=== PATIENT | female | born 1945 | race Caucasian/White ===

== ENCOUNTER → 2017-03-03 | Outpatient (CLI) | payer OTHER | LOC: FIMAGING 16:16 | PROVIDERS: ATTEND Family Medicine ==

== ENCOUNTER → 2018-01-04 | Outpatient (CLI) | payer OTHER | LOC: BMCIMAGING 08:42 | PROVIDERS: ATTEND Family Medicine | DX: I71.4 Abdominal aortic aneurysm, without rupture (principal); I51.3 Intracardiac thrombosis, not elsewhere classified ==

== ENCOUNTER 2018-01-19 15:51 | Observation (INO) | payer OTHER ==
--- NOTE | 2018-01-19 16:12 | CPEKG ---
Heart Rate: 76 RR Interval: 789 P-R Interval: 168 QRSD Interval: 80 QT Interval: 388 QTC Interval: 437 P Ovett: 46 QRS Ovett: -5 T Wave Ovett: 41 EKG Severity - ABNORMAL ECG - EKG Impression: SINUS RHYTHM EKG Impression: MULTIPLE VENTRICULAR PREMATURE COMPLEXES EKG Impression: PROBABLE LEFT ATRIAL ABNORMALITY Electronically Signed By: Yaw Marie 19-Jan-2018 22:16:43
--- NOTE | 2018-01-19 16:29 | EDPHY ---
H & P Time Seen by Provider: 01/19/18 16:00 HPI/ROS: Chief complaint. Low oxygen level HPI. Patient is a 72-year-old female who had an open aortic aneurysm repair at [facility] on January 08. She has been on 24/7 oxygen at 2 L since her discharge. She has been having nasal congestion for 3 days especially at night. She quit taking Flonase 3 days ago. She has no sense of shortness of breath. At her 's insistence for the nasal congestion she went to urgent care where they found her to have an O2 saturation of 80/7% while she was on her oxygen. Again she had no sense of shortness of breath. She has no chest pain or fever. No cough. She does feel like she has some congestion in her lungs and clears her throat or cough sit up and then seems to be fine. She has swelling in both legs since her surgery but no leg pain. Leg swelling goes down over night and then is worse again toward the end of the day. Decreasing abdominal pain since her surgery and no increase or change in symptoms of her abdomen. [place] [address] Patient's only complaint is nasal congestion ROS Constitutional. no fever/chills, no weakness Eyes. no problems with vision ENT. Nasal congestion Cardiovascular. no chest pain Respiratory. no shortness of breath, no cough Abdominal. Decreasing abdominal pain after surgery . no problems urinating MS. no calf pain/swelling, no neck/back pain, no joint pain Skin. no rash Lymph. no swollen glands; bilateral leg swelling Neuro. no headache, no dizziness, no difficulty walking or with speech Past Medical/Surgical History: Past medical history hypertension, dyslipidemia, aortic aneurysm repair Social History: , nonsmoker, no alcohol Smoking Status: Former smoker Physical Exam: General Appearance: Alert pleasant well-developed female no distress vital signs are stable O2 saturation 98% on 2 L of oxygen Eyes: Pupils equal and round no pallor or injection. ENT, Mouth: Mucous membranes are moist. Respiratory: Mild inspiratory expiratory rhonchi Cardiovascular: Regular rate and rhythm. Gastrointestinal: Abdomen is soft and nontender, no masses, bowel sounds normal. Abdominal incision is healing and without evidence of infection or dehiscence Neurological: Awake and alert, sensory and motor exams grossly normal. Skin: Warm and dry, no rashes. Musculoskeletal: Neck is supple nontender. Extremities 2+ pedal edema bilaterally Psychiatric: Patient is oriented X 3, there is no agitation. Constitutional: Initial Vital Signs Temperature (C) 36.7 C 01/19/18 15:53 Heart Rate 71 01/19/18 15:53 Respiratory Rate 16 01/19/18 15:53 O2 Sat (%) 98 01/19/18 15:53 O2 Delivery Mode Nasal Cannula O2 (L/minute) 2 Allergies/Adverse Reactions: Penicillins Allergy (Severe, Verified 01/19/18 20:00) hives, facial swelling latex Allergy (Verified 01/19/18 16:00) Home Medications: Medication Instructions Recorded Atorvastatin Calcium 80 mg PO HS 01/19/18 Hydrocodone/Acetaminophen [[place] 1 tab PO Q6HRS PRN 01/19/18 5/325 (*)] Losartan Potassium 100 mg PO DAILY 01/19/18 Magnesium Oxide [Magnesium Oxide 400 mg PO DAILY 01/19/18 400 mg (*)] Niacin ER [Niaspan 500 mg (*)] 500 mg PO HS@2130 01/19/18 traMADol [Ultram 50 mg (*)] 50 mg PO Q6HRS PRN 01/19/18 Medical Decision Making - Diagnostics EKG Interpretation: EKG interpreted by me shows normal sinus rhythm normal interval. There is left axis deviation. QRS is normal. There is no significant ST elevation or depression. There is frequent PVCs. rate is 76 Imaging Results: Imaging Impressions Chest X-Ray 01/19/18 16:34 Impression: 1. Lingula pneumonia. 2. Atherosclerotic tortuous aorta. 3. Recommend follow up until clear. Chest/Thorax CTA 01/19/18 17:08 Impression: 1. No evidence of pulmonary embolus using CT protocol. 2. Moderate to marked calcified as well as noncalcified plaques associated with the thoracic aorta and possible ulcerations involving the proximal descending thoracic aorta. 3. 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 4. Findings suspicious for subtotal infarction of the visualized left kidney with soft tissue thickening in the periaortic region in the upper abdomen presumably from recent abdominal aortic aneurysm repair. 5. Emphysematous changes and scattered blebs within the lungs. Findings discussed with Yaw Marie M.D. at 18:49 hour, 01/19/2018. Chest x-ray interpreted by me as possible left lower lobe infiltrate Chest CT shows no PE. However the patient has calcified as well as noncalcified plaques in the 3rd AA or thoracic aorta with possible ulcerations. 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 Patient and I discussed imaging and lab results. We discussed recommendation for CT chest for pulmonary embolus and pneumonia. She expresses understanding and agreement Re-evaluation at 7:10 p.m.. Patient, her , and I discussed imaging and lab results. We discussed treatment plan including recommendation for hospitalization. They expressed understanding and agreement I have consulted and discussed the case with Dr. Moore, hospitalist, who agrees to the admission I consulted discussed case with Dr. Boston for cardiac surgery who reviews the CT and will follow this patient Patient's care at [facility] is reviewed by me on corhio Differential Diagnosis: I am concerned about pulmonary embolus, pneumonia. The patient has ulcerations in the thoracic aorta. I am concerned about dissection. - Data Points Laboratory Results: Laboratory Results 01/19/18 16:30 01/19/18 16:30 01/19/18 01/19/18 01/19/18 17:15 16:40 16:30 WBC RBC Hgb Hct MCV MCH MCHC RDW Plt Count MPV Neut % (Auto) Lymph % (Auto) [place] % (Auto) Eos % (Auto) Baso % (Auto) Nucleat RBC Rel Count Absolute Neuts (auto) Absolute Lymphs (auto) Absolute Monos (auto) Absolute Eos (auto) Absolute Basos (auto) Absolute Nucleated RBC Immature Gran % Immature Gran # PT Cancelled INR Cancelled APTT Cancelled D-Dimer Sodium Potassium Chloride Carbon Dioxide Anion Gap BUN Creatinine Estimated GFR Glucose Calcium POC Troponin I 0.00 ng/mL ng/mL (0.00-0.08) NT-Pro-B Natriuret Pep Urine Color YELLOW Urine Appearance CLEAR Urine pH 7.0 (5.0-7.5) Ur Specific [place] 1.006 (1.002-1.030) Urine Protein NEGATIVE (NEGATIVE) Urine Ketones NEGATIVE (NEGATIVE) Urine Blood 2+ H (NEGATIVE) Urine Nitrate NEGATIVE (NEGATIVE) Urine Bilirubin NEGATIVE (NEGATIVE) Urine Urobilinogen NEGATIVE EU EU (0.2-1.0) Ur Leukocyte Esterase TRACE H (NEGATIVE) Urine RBC 5-10 /hpf H /hpf (0-3) Urine WBC 5-10 /hpf H /hpf (0-3) Ur Epithelial Cells TRACE /lpf /lpf (NONE-1+) Urine Glucose NEGATIVE (NEGATIVE) 01/19/18 01/19/18 01/19/18 16:30 16:30 16:30 WBC 9.67 10^3/uL H 10^3/uL (3.80-9.50) RBC 3.41 10^6/uL L 10^6/uL (4.18-5.33) Hgb 10.6 g/dL L g/dL (12.6-16.3) Hct 32.0 % L % (38.0-47.0) MCV 93.8 fL fL (81.5-99.8) MCH 31.1 pg pg (27.9-34.1) MCHC 33.1 g/dL g/dL (32.4-36.7) RDW 14.8 % % (11.5-15.2) Plt Count 359 10^3/uL 10^3/uL (150-400) MPV 9.3 fL fL (8.7-11.7) Neut % (Auto) 78.5 % H % (39.3-74.2) Lymph % (Auto) 12.4 % L % (15.0-45.0) [place] % (Auto) 6.7 % % (4.5-13.0) Eos % (Auto) 1.3 % % (0.6-7.6) Baso % (Auto) 0.3 % % (0.3-1.7) Nucleat RBC Rel Count 0.0 % % (0.0-0.2) Absolute Neuts (auto) 7.58 10^3/uL H 10^3/uL (1.70-6.50) Absolute Lymphs (auto) 1.20 10^3/uL 10^3/uL (1.00-3.00) Absolute Monos (auto) 0.65 10^3/uL 10^3/uL (0.30-0.80) Absolute Eos (auto) 0.13 10^3/uL 10^3/uL (0.03-0.40) Absolute Basos (auto) 0.03 10^3/uL 10^3/uL (0.02-0.10) Absolute Nucleated RBC 0.00 10^3/uL 10^3/uL (0-0.01) Immature Gran % 0.8 % % (0.0-1.1) Immature Gran # 0.08 10^3/uL 10^3/uL (0.00-0.10) PT 14.4 SEC SEC (12.0-15.0) INR 1.10 (0.83-1.16) APTT 29.0 SEC SEC (23.0-38.0) D-Dimer 3.90 ug/mLFEU H ug/mLFEU (0.00-0.50) Sodium 134 mEq/L L mEq/L (135-145) Potassium 4.3 mEq/L mEq/L (3.3-5.0) Chloride 101 mEq/L mEq/L (97-110) Carbon Dioxide 26 mEq/l mEq/l (22-31) Anion Gap 7 mEq/L L mEq/L (8-16) BUN 17 mg/dL mg/dL (7-23) Creatinine 1.1 mg/dL H mg/dL (0.6-1.0) Estimated GFR 49 Glucose 110 mg/dL H mg/dL (70-100) Calcium 8.8 mg/dL mg/dL (8.5-10.4) POC Troponin I NT-Pro-B Natriuret Pep 1280 pg/mL H pg/mL (0-125) Urine Color Urine Appearance Urine pH Ur Specific [place] Urine Protein Urine Ketones Urine Blood Urine Nitrate Urine Bilirubin Urine Urobilinogen Ur Leukocyte Esterase Urine RBC Urine WBC Ur Epithelial Cells Urine Glucose Medications Given: Discontinued Medications Sodium Chloride (Ns) 500 mls @ 0 mls/hr IV EDNOW ONE; Wide Open PRN Reason: Protocol Stop: 01/19/18 17:10 Last Admin: 01/19/18 17:21 Dose: 500 mls Levofloxacin/Dextrose (Levaquin 750 Mg (Premix)) 150 mls @ 100 mls/hr IV EDNOW ONE PRN Reason: Protocol Stop: 01/19/18 20:51 Last Admin: 01/19/18 20:03 Dose: 150 mls Point of Care Test Results: Chemistry 01/19/18 16:40 POC Troponin I 0.00 ng/mL ng/mL (0.00-0.08) Departure - Departure Disposition: [facility] Inpatient Acute Clinical Impression: Dyspnea Qualifiers: Dyspnea type: unspecified Qualified Code(s): R06.00 - Dyspnea, unspecified Condition: Fair
[2018-01-19 16:40] LABS: PLATELET COUNT 359 10^3/uL (150-400)
[2018-01-19] MEDS ORDERED: NS 500 ML IV ONE (17:09)
[2018-01-19] MEDS ORDERED: IOPAMIDOL (ISOVUE 370) 100 ML BTL IV ONE (17:15)
[2018-01-19 19:36] LABS: INR 1.1 (0.83-1.16); PROTIME(PATIENT) 14.4 SEC (12.0-15.0)
[2018-01-19] MEDS ORDERED: ONDANSETRON DISINTEGRATING 4 MG TAB PO PRN (20:40)
[2018-01-19] MEDS ORDERED: ONDANSETRON 4 MG/2 ML VIAL IVP PRN (20:40)
[2018-01-19] MEDS ORDERED: ACETAMINOPHEN 325 MG TAB PO PRN (20:40)
[2018-01-19] MEDS ORDERED: traMADol 50 MG TAB PO PRN (21:03)
[2018-01-19] MEDS ORDERED: HYDROCODONE/APAP 5/325 TAB PO PRN (21:03)
[2018-01-19] MEDS ORDERED: NIACIN ER 500 MG TAB.ER PO SCH (21:30)
--- NOTE | 2018-01-19 21:32 | GHP ---
[f rep st] HISTORY AND PHYSICAL DATE OF ADMISSION: 01/19/2018 CHIEF COMPLAINT: Congestion. HISTORY OF PRESENT ILLNESS: This is a 72-year-old female with a recent history of a AAA repair at [facility] who presents with congestion. During my interview, she is somewhat reluctant to give any information, somewhat condescending and seems quite frustrated with being here overall. She came in because she was having some nasal congestion. She felt as though it was running down the back of her throat. She has not had any cough or fevers. She had a recent AAA repair which was found due to abdominal pain. It was 9.3 cm at its largest. This was an aortic bifem graft which was done in an open procedure. She has recovered well until today. In the emergency department a CT scan of her chest for an elevated D-dimer showed significant pathology with her thoracic aorta. It also showed a question of a common carotid artery dissection. Additionally, a renal infarct was noted. She is denying any neurologic symptoms, including difficulty speaking, numbness or weakness. She did not know about these issues. PAST MEDICAL/SURGICAL HISTORY: 1. AAA repair as above. 2. Hyperlipidemia. 3. Hypertension. 4. Orthopedic surgery. 5. Tubal ligation. MEDICATIONS: Please see medication reconciliation. ALLERGIES: Penicillin and latex. SOCIAL HISTORY: She has a 53-year history of smoking. She just recently quit. She drinks 1 Blue Harris a day. FAMILY HISTORY: Notable for heart disease. REVIEW OF SYSTEMS: A 10-point review of systems is conducted and is negative except per HPI. PHYSICAL EXAMINATION: VITAL SIGNS: Blood pressure 171/83, heart rate 70, respiration rate 16, saturating 97% on 2 L, temperature is 36.7. GENERAL: Ms. Ulloa is visibly frustrated being here. She is in no acute distress. HEENT: The HEENT shows her to be normocephalic, atraumatic. CARDIOVASCULAR: A regular rate and rhythm. There are no murmurs, rubs, or gallops. PULMONARY: Lungs clear to auscultation bilaterally. ABDOMEN: A midline surgical incision which is well healing. She is not especially tender to palpation. SKIN: No rash. : No Tim. NEUROLOGIC: The neurologic exam shows her to be alert and oriented x3. She has a nonfocal neurologic exam. PSYCHIATRIC: The psychiatric exam shows her to be somewhat frustrated. LABORATORIES: White count is 9.6, hemoglobin is 10. D-dimer is 3.9. Sodium is 134, creatinine is 1.1. BNP is 1280. Urinalysis shows trace leuk esterase, 5- 10 whites, 2+ blood. DATA: CT angiogram shows thoracic ulcers versus noncalcified plaques, possible focal dissection of the left common carotid artery, likely subtotal infarct of the visualized left kidney. IMPRESSION AND PLAN: 1. Thoracic aorta pathology as well as common carotid artery possible dissection: She did not come in with any of these complaints, these were incidentally found. Dr. Delvalle has been consulted by the emergency department, he will review her CT scan later this evening. Will await his review. She needs better blood pressure control, if she does not come down we will need to increase her antihypertensives. She is on high-dose statin, has stop smoking, would consider an aspirin. 2. Lingular pneumonia seen on chest x-ray: This was not seen on CT scan. She is not coughing. Has not had fevers. I will stop her antibiotics. 3. Renal infarct: This was also incidentally found. 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 Her kidney function is okay at this time. We will recheck it tomorrow. Consider a renal CT angiogram if her creatinine is stable. 4. Difficulty with medical care: She is visibly quite frustrated. She says that she would not want any additional surgeries at this point. This will all need to be taken into account while deciding on the best plan of action for her care. /[id number]/MODL MTDD
--- NOTE | 2018-01-19 21:52 | GCON ---
[f rep st] CONSULTATION Patient is seen at the request of Dr. Marie with the patient's permission. IMPRESSION: Heavily calcified ascending aorta and arch, as well as the origin of the arch vessels wi thout evidence of acute dissection penetrating aortic ulcer or aortic catastrophe. It is difficult t o tell the amount of narrowing of the left common carotid based on this CAT scan. If the patient james s develop symptoms, further interrogation could be pursued. However, at this time, she is entirely a symptomatic from any aortic pathology. CHIEF COMPLAINT: Nasal congestion. HISTORY OF CHIEF COMPLAINT: Patient recently underwent an open abdominal aneurysm[facility]. She has had some nasal congestion and sought care at an outside facility. They noticed her O2 sats were low and referred her to the ER. She underwent diagnostic studies for PE and was noted to have incidental findings of heavy calcification in the arch and the origins of the branch vessels. Surgical consideration was requested. Remainder of history is as per documented in the admitting h istory and physical. At this present time, I would do nothing further unless she developed any sympt oms of cerebral ischemia or embolic phenomena. She has extremely calcified, very poor quality aortic arch and would be fraught with embolic complications for any prophylactic attempt to repair that. /[id number]/MODL
[2018-01-20 03:51] LABS: PLATELET COUNT 336 10^3/uL (150-400)
[2018-01-20] MEDS ORDERED: LOSARTAN POTASSIUM 50 MG TAB PO SCH (09:00)
[2018-01-20] MEDS ORDERED: MAGNESIUM OXIDE 400 MG TAB PO SCH (09:00)
--- NOTE | 2018-01-20 11:30 | ECHO ---
[email or web address] [address] [address] Main: [phone] Fax: Transthoracic Echocardiogram Name: RAVI COLLINS MR#: [id number] Study Date: 01/20/2018 Study Time: 10:42 AM Date of : 1945 Age: 72 year(s) Height: 157.5 cm (62 in.) Weight: 63.05 kg (139 lb.) BSA: 1.64 m2 Gender: Female Examination: Echo Indication: Renal infarct Image Quality: Contrast: Requested by: Jesus Amaya BP: 126 mmHg/80 mmHg Heart Rate: Rhythm: Normal sinus rhythm with ectopy Indication: Renal infarct Procedure Staff Assistant Professor Of German: Hussein Vasquez RDCS Reading Physician: Kun Dunne MD Requesting Provider: Conclusions: Normal global systolic LV function. EF is 74 %. Diastolic dysfunction is present. . Mild mitral valve regurgitation is present. There is mild to moderate ascending aorta calcification.. Based on mild mitral regurgitation, a repeat echo may be considered in 3 years unless there is a change in clinical status. Measurements: Chambers Valvular Assessment AV/MV Valvular Assessment TV/PV Normal Normal Normal Name Value Range Name Value Range Name Value Range Ao Lisa (MM): 2.9 cm (2.2 cm-3.7 AV Vmax: 2.02 m/s (1 m/s-1.7 TR Vmax: 2.63 mm/s ( - ) cm) m/s) TR PGmax: 28 mmHg ( - ) IVSd (2D): 0.8 cm (0.6 cm-1.1 AV maxP mmHg ( - ) syst. PAP: 33 mmHg ( - ) cm) AV meanP mmHg ( - ) PV Vmax: 1.53 m/s (0.6 m/s-0.9 LVDd (2D): 4.8 cm (3.9 cm-5.3 LVOT Vmax: 1.19 m/s (0.7 m/s-1.1 m/s) cm) m/s) PV PGmax: 9 mmHg ( - ) LVDs (2D): 2.8 cm (2.1 cm-4 JENIFFER (Vmax): 1.7 cm2 ( - ) cm) JENIFFER (VTI): 2.0 cm ( - ) LVPWd (2D): 0.9 cm ( - ) MV E Vmax: 0.88 m/s ( - ) LVOTd 1.9 cm 1.9 cm mm MV A Vmax: 1.09 m/s ( - ) LVEF (2D): 74 (>=54 %) MV E/A: 0.81 ( - ) Continued Measurements: Chambers Valvular Assessment AV/MV Valvular Assessment TV/PV Name Value Name Value Name Value LADs Lon.5 cm MV E/E' Septal: 21.60 CVP (est.): 5 mmHg Patient: RAVI COLLINS Study Date: 01/20/2018 Page 1 of 2 10:42 AM LA Area: 16.3 cm2 MV E/E' Lateral: 14.40 LA Volume: 47 ml LA Volume Index: 28.7 ml/m2 Findings: Left Ventricle: Normal size left ventricle. No LV hypertrophy. Normal global systolic LV function. EF is 74 %. No regional wall motion abnormality. Diastolic dysfunction is present. . Right Ventricle: Normal size right ventricle. Left Atrium: The left atrium is normal in size. Right Atrium: The right atrium is normal in size. Mitral Valve: The mitral valve is normal in appearance. Mild mitral valve regurgitation is present. Aortic Valve: Mild aortic cusp calcification is noted. No aortic valve stenosis is present. There is no significant aortic valve regurgitation. Tricuspid Valve: Trivial tricuspid valve regurgitation. The pulmonary artery pressure is normal. Pulmonic Valve: The pulmonic valve is normal in appearance and function. Aorta: There is mild to moderate ascending aorta calcification.. Pericardium: No pericardial effusion. (No Signature Object) Patient: RAVI COLLINS Study Date: 01/20/2018 Page 2 of 2 10:42 AM [id number]
[2018-01-20] MEDS ORDERED: FUROSEMIDE 20 MG TAB PO SCH (12:15)
--- NOTE | 2018-01-20 12:17 | PDDCSUM ---
Discharge Summary Discharge Summary: 72 yo female with hx of recent abd aneurysmectomy presented with nasal congestion. In the ER, w/u include CTA chest which showed possible Ascending aortic aneurysm and she was admitted. She was seen by Dr. Delvalle who does not feel surgical intervention is needed. She is noted to have pedal edema and we have started Lasix 20mg daily. She is also noted to have labile but elevated BP and this should have some improvement with the diuretic. She plans on seeing her surgeon on 01/24 TTE was done which shows an EF of 74%. No other medication changes were made. Her Cr is stable at 1.1 Per her preference, she will f/u with her thoracic surgeon on 01/24. DDX: #Heavy calcified ascending aortic and arch -not symptomatic -cleared for medical mgmt by surgery -f/u with pts surgical team at [facility] #Pedal edema, likely diastolic dysfunction -started Lasix #recent AAA repair #HTN #HLD MEDS: SEE MED REC EXAM: NAD, AAOX3 RRR CTA B S/NT/ND NO LE EDEMA F/U: PER ABOVE TOTAL TIME SPENT ON D/C IS 35 MINS
[2018-01-20 12:28] VITALS: BP 119/73
--- NOTE | 2018-01-20 12:33 | ASMTDCNOTE ---
Case Management Discharge Discharge Order Complete? Answers: Yes Patient to Obtain Answers: via Family Medications Transportation Arranged Answers: Family/Friends Discharge Comments Notes: Pt was admitted with nasal congestion following a AAA repair at [facility] on 01/08. She is discharging home today with no CM needs and will follow up with her surgeon on 01/24. She was here less than 24 hours. Date Signed: 01/20/2018 12:32 PM Electronically Signed By:CARMEN Persaud
--- NOTE | 2018-01-20 12:36 | ASDISCHSUM ---
Discharge Information Plan Status:Home with No Needs Medically Cleared to Leave:01/20/2018 Discharge Date:01/20/2018 CM D/C Disposition:Home, Routine, Self-Care ADT D/C Disposition:Home, Routine, Self-Care Projected Discharge Date:01/20/2018 Transportation at D/C:Family Discharge Delay Reason: Follow-Up Date:01/20/2018 Discharge Slot: Final Diagnosis: Placement Information Patient Contact Information Contact Name:JORGE LUIS Relationship:Johnny Address:[address] City:[place] Alternate Phone: [facility]/Zip Code:[place] [address] Email: Financial Information Financial Class:Medicare Primary Plan Desc:MEDICARE INPATIENT Primary Plan Number:[id number] Secondary Plan Desc:[facility] Secondary Plan Number:[id number] Assessment Information Case Management Discharge Plan Note Case Management Discharge Discharge Order Complete? Answers: Yes Patient to Obtain Answers: via Family Medications Transportation Arranged Answers: Family/Friends Discharge Comments Notes: Pt was admitted with nasal congestion following a AAA repair at [facility] on 01/08. She is discharging home today with no CM needs and will follow up with her surgeon on 01/24. She was here less than 24 hours. Date Signed: 01/20/2018 12:32 PM Electronically Signed By:CARMEN Persaud LACE LACE Length of stay for Answers: Less than 1 day current admission Acuity / Level of Answers: No Care: Did the patient have an inpatient admission? Comorbidities - select Answers: Other Notes: AAA repair, HTN all that apply # of Emergency department Answers: 1-2 visits in the last 6 months Score: 2 Date Signed: 01/20/2018 12:34 PM Electronically Signed By:CARMEN Persaud Intervention Information Intervention Type:*Incorrect Registration Date of Service:01/20/2018 09:21 AM Patient Type:Inpatient Staff Member:POP Benson Susan Hours: Discipline: Severity: Comment:
[2018-01-20] MEDS ORDERED: ATORVASTATIN CALCIUM 40 MG TAB PO SCH (21:00)
== END 2018-01-20 13:06 | disposition home or self-care (01) ==
LOC: INTOOBSV 20:21 → F2W 21:40
PROVIDERS: ADMIT Student in an Organized Health Care Education/Training Program; ATTEND Family Medicine
DX: I71.2 Thoracic aortic aneurysm, without rupture (principal); J18.9 Pneumonia, unspecified organism; R06.09 Other forms of dyspnea; R09.81 Nasal congestion; R60.9 Edema, unspecified; I10 Essential (primary) hypertension; N28.0 Ischemia and infarction of kidney; E78.5 Hyperlipidemia, unspecified; Z87.891 Personal history of nicotine dependence; Z88.0 Allergy status to penicillin; Z91.040 Latex allergy status; Z95.818 Presence of other cardiac implants and grafts; E86.9 Volume depletion, unspecified
CPT/HCPCS: 71046; 71275; 93005; 93306; G0378; J1956; Q9967; 84484-PO; 96365

== ENCOUNTER 2018-07-03 18:47 | Inpatient (IN) | payer OTHER ==
--- NOTE | 2018-07-03 19:00 | EDPHY ---
H & P Time Seen by Provider: 07/03/18 18:57 HPI/ROS: CHIEF COMPLAINT: Acute chest and abdominal pain HISTORY OF PRESENT ILLNESS: The patient presents to the ED with complaints of acute chest and abdominal pain that began prior to arrival while having a bowel movement. The patient complains of a severe bandlike pain in her epigastrium which radiates to her back. She is also having some lower sharp substernal chest discomfort. The patient does have a history of an abdominal aortic aneurysm repaired earlier this year in [place]. The patient was hospitalized in January of this year after she was found to have evidence of thoracic ulcerations, a possible carotid dissection and renal infarct on chest imaging. REVIEW OF SYSTEMS: A comprehensive 10 point review of systems is otherwise negative aside from elements mentioned in the history of present illness. Source: Patient - Medical/Surgical History Hx Asthma: No Hx Chronic Respiratory Disease: No Hx Diabetes: No Hx Cardiac Disease: Yes Hx Renal Disease: No Hx Cirrhosis: No Hx Alcoholism: No Hx HIV/AIDS: No Hx Splenectomy or Spleen Trauma: No Other PMH: Aortic aneurism repair 01/08/2018, HTN, HIGH CHOLESTERAL, BIANKA WRIST FRACTURES, - Social History Smoking Status: Former smoker - Physical Exam Exam: General Appearance: Alert, appears uncomfortable Eyes: Pupils equal and round no pallor or injection ENT, Mouth: Mucous membranes moist Respiratory: There are no retractions, lungs are clear to auscultation Cardiovascular: Regular rate and rhythm Gastrointestinal: Moderate tenderness to palpation in the epigastrium and left upper quadrant Neurological: 5/5 strength noted all 4 extremities Skin: Warm and dry, no rashes Musculoskeletal: Neck is supple nontender Extremities: symmetrical, full range of motion Psychiatric: Patient is oriented X 3, there is no agitation Constitutional: Initial Vital Signs Temperature (C) 36.3 C 07/03/18 19:03 Heart Rate 90 07/03/18 19:03 Respiratory Rate 16 07/03/18 19:03 Blood Pressure 170/76 H 07/03/18 19:03 O2 Sat (%) 100 07/03/18 19:03 O2 Delivery Mode Room Air O2 (L/minute) 2 Allergies/Adverse Reactions: Penicillins Allergy (Severe, Verified 01/19/18 20:00) hives, facial swelling latex Allergy (Verified 01/19/18 16:00) Home Medications: Medication Instructions Recorded Atorvastatin Calcium 80 mg PO HS 01/19/18 Losartan Potassium 100 mg PO DAILY 01/19/18 Niacin ER [Niaspan 500 mg (*)] 500 mg PO HS@2130 01/19/18 Aspirin EC [Aspirin EC 325 mg (*)] 325 mg PO DAILY 07/03/18 Ibuprofen [Advil] 200 mg PO DAILY PRN 07/03/18 Nicotine Polacrilex [Nicorette] 2 mg BC QID PRN 07/03/18 Medical Decision Making - Diagnostics EKG Interpretation: EKG: Complete interpretation has been separately recorded in the [facility] archive. Summary impression: Sinus rhythm, rate 83 Imaging Results: Imaging Impressions Chest X-Ray 07/03/18 18:53 Impression: 1. Tortuous aorta. 2. No active cardiopulmonary disease seen. Abdomen/Pelvis CTA 07/03/18 19:22 Impression: 1. Intramural dissection without flow involving the descending portion of the aortic arch and extending through the left and anterior aspect of the descending thoracic aorta probably to the level of the left renal artery that demonstrates severe narrowing and subsequent subtotal infarct of the left kidney. 2. Endoluminal graft of the abdominal aorta just distal to the renal arteries extending through the pelvis as detailed above. 3. Focal dissection suspected involving the proximal left subclavian artery about 2 cm above the aortic arch stable and compared to the prior study with mild narrowing of the lumen measuring about 50-60%. 4. Mild focal narrowing at the origin of the left subclavian artery similar to the prior study also measuring 50-60%. Evaluation of the vascular system was performed utilizing NASCET criteria. Findings discussed with Viet Mcnamara M.D. at 2030 hour, 07/03/2018. Findings were also reviewed in the radiology department with Dr. Delvalle. Chest/Thorax CTA 07/03/18 19:22 Impression: 1. Intramural dissection without flow involving the descending portion of the aortic arch and extending through the left and anterior aspect of the descending thoracic aorta probably to the level of the left renal artery that demonstrates severe narrowing and subsequent subtotal infarct of the left kidney. 2. Endoluminal graft of the abdominal aorta just distal to the renal arteries extending through the pelvis as detailed above. 3. Focal dissection suspected involving the proximal left subclavian artery about 2 cm above the aortic arch stable and compared to the prior study with mild narrowing of the lumen measuring about 50-60%. 4. Mild focal narrowing at the origin of the left subclavian artery similar to the prior study also measuring 50-60%. Evaluation of the vascular system was performed utilizing NASCET criteria. Findings discussed with Viet Mcnamara M.D. at 2030 hour, 07/03/2018. Findings were also reviewed in the radiology department with Dr. Delvalle. ED Course/Re-evaluation: The patient presents to the ED with acute chest and abdominal pain. Initial EKG demonstrates frequent PVCs without evidence of ST segment elevation or depression. I reviewed the patient's past medical records including her chest CT scan from January which demonstrated: 1. No evidence of pulmonary embolus using CT protocol. 2. Moderate to marked calcified as well as noncalcified plaques associated with the thoracic aorta and possible ulcerations involving the proximal descending thoracic aorta. 3. 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 4. Findings suspicious for subtotal infarction of the visualized left kidney with soft tissue thickening in the periaortic region in the upper abdomen presumably from recent abdominal aortic aneurysm repair. 5. Emphysematous changes and scattered blebs within the lungs. Given the patient's complaints of acute abdominal pain and chest pain a repeat angiographic study of the chest and abdomen has been ordered. The patient was noted to have an elevated venous lactate of 2.3. CT scan results were obtained and reviewed with radiologist. Findings concerning for acute thoracic aortic dissection. Patient is started immediately on nicardipine drip. Consultation was made with Dr. Kevin Delvalle at 8pm. Patient reports her pain is currently a 7/10. Re-evaluation at 8:11 p.m.: Blood pressure 143/70, continued titration of nicardipine drip. Patient has been typed and screened. 8:16 p.m.: Blood pressure 129/61. Pain currently 4/10 . Continue nicardipine titration, currently running at 7.5 mg/hr. 8:30 p.m.: Dr. Delvalle is in the department evaluating patient. Differential Diagnosis: Differential diagnosis considered includes aortic dissection, aneurysmal rupture , mesenteric ischemia, pancreatitis, cholecystitis Critical Care Time: Critical care time exclusive of procedures and exclusive of the PA's time was 65 minutes, performed by myself, Viet Mcnamara MD. The patient presents the ED with acute chest and back pain and is found to have an aortic dissection. The patient was started emergently on a nicardipine drip. Emergent consultation was made with the cardiothoracic surgery service. - Data Points Laboratory Results: Laboratory Results 07/03/18 19:00 07/03/18 19:00 07/03/18 07/03/18 07/03/18 20:05 19:10 19:09 WBC RBC Hgb POC Hgb 14.3 gm/dL gm/dL (12.6-16.3) Hct POC Hct 42 % % (38-47) MCV MCH MCHC RDW Plt Count MPV Neut % (Auto) Lymph % (Auto) [place] % (Auto) Eos % (Auto) Baso % (Auto) Nucleat RBC Rel Count Absolute Neuts (auto) Absolute Lymphs (auto) Absolute Monos (auto) Absolute Eos (auto) Absolute Basos (auto) Absolute Nucleated RBC Immature Gran % Immature Gran # PT INR APTT VBG Lactic Acid 2.3 mmol/L H mmol/L (0.7-2.1) POC Sodium 142 mEq/L mEq/L (135-145) Sodium POC Potassium 3.2 mEq/L L mEq/L (3.3-5.0) Potassium POC Chloride 110 mEq/L mEq/L (97-110) Chloride Carbon Dioxide Anion Gap POC BUN 28 mg/dL H mg/dL (7-23) BUN Creatinine POC Creatinine 1.6 mg/dL H mg/dL (0.6-1.0) Estimated GFR Glucose POC Glucose 107 mg/dL H mg/dL (70-100) Calcium Total Bilirubin Conjugated Bilirubin Unconjugated Bilirubin AST ALT Alkaline Phosphatase POC Troponin I Total Protein Albumin Lipase Patient ABO/Rh O POSITIVE Antibody Screen NEGATIVE Crossmatch IS Only See Detail 07/03/18 07/03/18 07/03/18 19:02 19:00 19:00 WBC RBC Hgb POC Hgb Hct POC Hct MCV MCH MCHC RDW Plt Count MPV Neut % (Auto) Lymph % (Auto) [place] % (Auto) Eos % (Auto) Baso % (Auto) Nucleat RBC Rel Count Absolute Neuts (auto) Absolute Lymphs (auto) Absolute Monos (auto) Absolute Eos (auto) Absolute Basos (auto) Absolute Nucleated RBC Immature Gran % Immature Gran # PT 13.5 SEC SEC (12.0-15.0) INR 1.01 (0.83-1.16) APTT 28.9 SEC SEC (23.0-38.0) VBG Lactic Acid POC Sodium Sodium 140 mEq/L mEq/L (135-145) POC Potassium Potassium 3.7 mEq/L mEq/L (3.5-5.2) POC Chloride Chloride 109 mEq/L mEq/L (97-110) Carbon Dioxide 17 mEq/l L mEq/l (22-31) Anion Gap 14 mEq/L mEq/L (6-14) POC BUN BUN 30 mg/dL H mg/dL (7-23) Creatinine 1.4 mg/dL H mg/dL (0.6-1.0) POC Creatinine Estimated GFR 37 Glucose 105 mg/dL H mg/dL (70-100) POC Glucose Calcium 10.1 mg/dL mg/dL (8.5-10.4) Total Bilirubin 0.7 mg/dL mg/dL (0.1-1.4) Conjugated Bilirubin 0.4 mg/dL mg/dL (0.0-0.5) Unconjugated Bilirubin 0.3 mg/dL mg/dL (0.0-1.1) AST 28 IU/L IU/L (14-46) ALT 33 IU/L IU/L (9-52) Alkaline Phosphatase 141 IU/L H IU/L (38-126) POC Troponin I 0.00 ng/mL ng/mL (0.00-0.08) Total Protein 7.5 g/dL g/dL (6.3-8.2) Albumin 4.7 g/dL g/dL (3.5-5.0) Lipase 185 IU/L IU/L (23-300) Patient ABO/Rh Antibody Screen Crossmatch IS Only 07/03/18 19:00 WBC 8.74 10^3/uL 10^3/uL (3.80-9.50) RBC 4.45 10^6/uL 10^6/uL (4.18-5.33) Hgb 13.7 g/dL g/dL (12.6-16.3) POC Hgb Hct 41.1 % % (38.0-47.0) POC Hct MCV 92.4 fL fL (81.5-99.8) MCH 30.8 pg pg (27.9-34.1) MCHC 33.3 g/dL g/dL (32.4-36.7) RDW 13.2 % % (11.5-15.2) Plt Count 227 10^3/uL 10^3/uL (150-400) MPV 10.7 fL fL (8.7-11.7) Neut % (Auto) 59.1 % % (39.3-74.2) Lymph % (Auto) 30.5 % % (15.0-45.0) [place] % (Auto) 7.1 % % (4.5-13.0) Eos % (Auto) 2.2 % % (0.6-7.6) Baso % (Auto) 0.8 % % (0.3-1.7) Nucleat RBC Rel Count 0.0 % % (0.0-0.2) Absolute Neuts (auto) 5.16 10^3/uL 10^3/uL (1.70-6.50) Absolute Lymphs (auto) 2.67 10^3/uL 10^3/uL (1.00-3.00) Absolute Monos (auto) 0.62 10^3/uL 10^3/uL (0.30-0.80) Absolute Eos (auto) 0.19 10^3/uL 10^3/uL (0.03-0.40) Absolute Basos (auto) 0.07 10^3/uL 10^3/uL (0.02-0.10) Absolute Nucleated RBC 0.00 10^3/uL 10^3/uL (0-0.01) Immature Gran % 0.3 % % (0.0-1.1) Immature Gran # 0.03 10^3/uL 10^3/uL (0.00-0.10) PT INR APTT VBG Lactic Acid POC Sodium Sodium POC Potassium Potassium POC Chloride Chloride Carbon Dioxide Anion Gap POC BUN BUN Creatinine POC Creatinine Estimated GFR Glucose POC Glucose Calcium Total Bilirubin Conjugated Bilirubin Unconjugated Bilirubin AST ALT Alkaline Phosphatase POC Troponin I Total Protein Albumin Lipase Patient ABO/Rh Antibody Screen Crossmatch IS Only Medications Given: Discontinued Medications Fentanyl (Sublimaze) 100 mcg IVP EDNOW ONE Stop: 07/03/18 19:58 Last Admin: 07/03/18 19:58 Dose: 100 mcg Sodium Chloride (Ns) 1,000 mls @ 0 mls/hr IV EDNOW ONE; Wide Open PRN Reason: Protocol Stop: 07/03/18 19:31 Last Admin: 07/03/18 19:44 Dose: 1,000 mls Point of Care Test Results: Chemistry 07/03/18 07/03/18 19:09 19:02 POC Sodium 142 mEq/L mEq/L (135-145) POC Potassium 3.2 mEq/L L mEq/L (3.3-5.0) POC Chloride 110 mEq/L mEq/L (97-110) POC BUN 28 mg/dL H mg/dL (7-23) POC Creatinine 1.6 mg/dL H mg/dL (0.6-1.0) POC Glucose 107 mg/dL H mg/dL (70-100) POC Troponin I 0.00 ng/mL ng/mL (0.00-0.08) ISTAT H&H 07/03/18 19:09 POC Hgb 14.3 gm/dL gm/dL (12.6-16.3) POC Hct 42 % % (38-47) Departure - Departure Disposition: [facility] Inpatient Acute Condition: Critical
[2018-07-03 19:20] LABS: PLATELET COUNT 227 10^3/uL (150-400)
[2018-07-03] MEDS ORDERED: IOPAMIDOL (ISOVUE 370) 100 ML BTL IV ONE (19:26)
[2018-07-03] MEDS ORDERED: NS 1,000 ML IV ONE ×2 (19:30→21:00)
--- NOTE | 2018-07-03 19:46 | CPEKG ---
Test Reason : OPEN Blood Pressure : / mmHG Vent. Rate : 083 BPM Atrial Rate : 084 BPM P-R Int : 185 ms QRS Dur : 089 ms QT Int : 410 ms P-R-T Axes : 059 011 058 degrees QTc Int : 482 ms Sinus rhythm Multiple ventricular premature complexes Probable left atrial enlargement Confirmed by Viet Mcnamara ([id number]) on 07/03/2018 7:46:26 PM Referred By: Confirmed By:Viet Mcnamara
[2018-07-03] MEDS ORDERED: fentaNYL 100 MCG/2 ML INJ ONE (19:52)
[2018-07-03] MEDS ORDERED: fentaNYL 100 MCG/2 ML INJ IVP ONE (19:57)
[2018-07-03] MEDS ORDERED: niCARdipine/NACL 200 ML IV SCH ×2 (20:00→21:00)
[2018-07-03 20:35] LABS: INR 1.01 (0.83-1.16); PROTIME(PATIENT) 13.5 SEC (12.0-15.0)
[2018-07-03] MEDS ORDERED: ceFAZolin 2 GM/DEXTROSE 100 ML IV ONE (21:00)
[2018-07-03] MEDS ORDERED: AMINOCAPROIC ACID 5 GM/20 ML VIAL IV ONE (21:00)
[2018-07-03] MEDS ORDERED: CITRATE DEXTROSE SOLN 500 ML BAG MISC ONE (21:00)
[2018-07-03] MEDS ORDERED: PHENYLEPHRINE HCL 50 MG in NS 250 ML IV ONE (21:00)
[2018-07-03] MEDS ORDERED: NOREPINEPHRINE BITARTRATE 16 MG in NS 250 ML IV ONE (21:00)
[2018-07-03] MEDS ORDERED: CARDIOPLEGIA DEL NIDO SOLN 1,052.8 ML PF ONE (21:00)
[2018-07-03] MEDS ORDERED: MANNITOL 25% 12.5 GM/50 ML VIAL IVP ONE (21:00)
[2018-07-03] MEDS ORDERED: INSULIN REGULAR HUMAN 100 UNIT in NS 100 ML IV ONE (21:00)
[2018-07-03] MEDS ORDERED: MUPIROCIN 2% 1 APP/GM OINT *BID NS SCH (21:00)
[2018-07-03] MEDS ORDERED: CHLORHEXIDINE GLUC HIBICLENS 118 ML BTL TP SCH (21:00)
[2018-07-03] MEDS ORDERED: LIDOCAINE 1% 5 ML SDV ID PRN (21:00)
[2018-07-03] MEDS ORDERED: ACETAMINOPHEN 650 MG/20.3 ML UDCUP PO PRN (21:04)
[2018-07-03] MEDS ORDERED: NS W/ 20 KCl/L 1,000 ML IV SCH (21:15)
--- NOTE | 2018-07-03 21:34 | GCON ---
DATE OF CONSULTATION: 07/03/2018 REFERRING PHYSICIAN: Dr. Mcnamara The patient seen at the request of Dr. Mcnamara with the patient's permission. IMPRESSION: 1. Type B aortic dissection. 2. Hypertension with a history of poor control. 3. Likely chronic obstructive pulmonary disease with a 50-60 pack-year history of cigarette abuse. 4. Hyperlipidemia. 5. Peripheral vascular occlusive disease. 6. Status post abdominal aneurysmectomy. RECOMMENDATIONS: At the present time initial calls were regarding potential type A dissection. Surgical team was mobilized. Upon review of the CT scan, I see no definite evidence of any intramural hematoma flap or true dissection in the ascending or transverse arch. I do see heavy calcification as per previous CT scan and what appears to be an intramural hematoma of the descending thoracic aorta. She does have multiple atheromatous ulcers throughout the aorta , but none that appear threatening at this time. Please see CT scan for review. At the present time, she is on Cardene with adequate blood pressure control. We will admit her to the ICU with an indwelling arterial line and maintain systolic pressure under 120. I advised them that if no complications including uncontrolled hypertension, uncontrolled pain, branch vessel occlusion or rupture occurs, that we would not approach this surgically. I did advise them in some situations we place an intraluminal graft in the descending thoracic aorta through the femoral arteries for long-term management of type B dissection. However, she has no true flap, and I see no benefit from that currently. She and her are agreeable to stay in the hospital. CHIEF COMPLAINT: This patient was resting comfortably when she had acute onset of sharp severe pain across the upper abdomen and then radiating into her back. She had no nausea, diaphoresis, syncope, or anginal symptoms. She presented to the ER at which point and the present time, she is asymptomatic. PREVIOUS MEDICAL HISTORY: As stated. ALLERGIES: Penicillin and latex. SOCIAL HISTORY: She has a 60 pack-year history of cigarette abuse, stopping 6 months ago. She drinks 1 beer a day. REVIEW OF SYSTEMS: Except for admitting chief complaint, at the present time, she has no complaints except thirst. All 10 systems were reviewed. PHYSICAL EXAMINATION: GENERAL APPEARANCE: This is an elderly female, appears markedly older than stated age. She has a pallorous discoloration consistent with somebody who is a long-time heavy smoker. HEENT: Normocephalic. PERRLA. EOMI. NECK: Has soft bruits bilaterally. HEART: Rate is regular without murmur. CHEST: Lungs are diminished. She has increased AP diameter. ABDOMEN : Soft, nontender. She has a healed abdominal incision. VASCULAR: Femoral pulses are 1+. She has no pedal pulses. No edema. RECTAL AND GENITAL: Exams were deferred. DIAGNOSTIC DATA: Laboratory reveals hematocrit of 41, creatinine 1.4, potassium 3.2, CO2 was 17. Please see CT results. /[id number]/MODL MTDD
--- NOTE | 2018-07-03 21:34 | SOAPPROG ---
SOAP Progress Note Assessment/Plan: Assessment: Plan: 07/03/18 21:33 20 g R radial radu placed w/o diff/comp, after unable to pass wire on L Objective: Vital Signs Temp Pulse Resp BP Pulse Ox 36.3 C 91 20 106/63 96 07/03/18 19:03 07/03/18 21:20 07/03/18 21:20 07/03/18 21:20 07/03/18 21:20 PT 13.5 SEC (12.0-15.0) 07/03/18 19:00 INR 1.01 (0.83-1.16) 07/03/18 19:00 ICD10 Worksheet Patient Problems: Problems Problem Status Onset Dyspnea Acute
[2018-07-03] MEDS ORDERED: NICOTINE POLACRILEX 2 MG GUM B PRN (21:40)
[2018-07-03] MEDS: HYDROCODONE/APAP 5/325 TAB PO PRN (22:13)
[2018-07-04] MEDS: niCARdipine/NACL 200 ML IV SCH ×3 (02:45→15:46)
[2018-07-04] MEDS: HYDROCODONE/APAP 5/325 TAB PO PRN ×3 (02:47→20:44)
[2018-07-04] MEDS ORDERED: IOPAMIDOL (ISOVUE 370) 100 ML BTL IV ONE (04:39)
[2018-07-04] MEDS: traMADol 50 MG TAB PO PRN (06:14)
--- NOTE | 2018-07-04 09:50 | ASMTCMCOM ---
CM Note CM Note Notes: 72yo female admitted for Acute abdominal and chest pain. She has a Hx of Abdominal aneurysmectomy, HTN, COPD, HLD, PVD-occlusion. Patient stopped smoking 6mos ago. Cardiology consult reports no surgery, to be medically managed. Patient lives with her in [place], [place]. CM not anticipating that patient will have discharge needs. Date Signed: 07/04/2018 09:49 AM Electronically Signed By:Nelly Case LCSW
--- NOTE | 2018-07-04 09:52 | ASMTLACE ---
LACE Acuity / Level of Answers: Yes Care: Did the patient have an inpatient admission? Comorbidities - select Answers: Chronic pulmonary disease all that apply Connective tissue disease Peripheral vascular disease Other Notes: Abd aneurysm # of Emergency department Answers: 1-2 visits in the last 6 months Score: 11 Date Signed: 07/04/2018 09:51 AM Electronically Signed By:Nelly Case LCSW
--- NOTE | 2018-07-04 11:42 | ECHO ---
[email or web address] [address] [address] Main: [phone] Fax: Transthoracic Echocardiogram Name: RAVI COLLINS MR#: [id number] Study Date: 07/04/2018 Study Time: 07:56 AM Date of : 1945 Age: 72 year(s) Height: 160 cm (63 in.) Weight: 56.25 kg (124 lb.) BSA: 1.58 m2 Gender: Female Examination: Echo Indication: Hx of AAA repair, Eval for Dissection Image Quality: Contrast: Requested by: Viet Johnson BP: 121 mmHg/61 mmHg Heart Rate: Rhythm: Normal sinus rhythm with ectopy Indication: Hx of AAA repair, Eval for Dissection Procedure Staff Learning Support Assistant: Hussein Vasquez RDCS Reading Physician: Kevin Zacarias MD Requesting Provider: Conclusions: Normal size left ventricle. EF is 69 %. No regional wall motion abnormality. Diastolic dysfunction is present. . Mild mitral valve regurgitation is present. Mild calcific aortic valve stenosis. There is known mild to moderate aortic valve calcification with no significant aortic valve insufficiency. The AV mean PG is 18 mmHg with a AV V max of 2.7 m/s. . Trivial to mild tricuspid valve regurgitation. The pulmonary artery pressure is mildly increased. No pericardial effusion. No significant change compared to 01/20/2018. Measurements: Chambers Valvular Assessment AV/MV Valvular Assessment TV/PV Normal Normal Normal Name Value Range Name Value Range Name Value Range Ao Lisa (MM): 2.9 cm (2.2 cm-3.7 AV Vmax: 2.70 m/s (1 m/s-1.7 TR Vmax: 2.46 mm/s ( - ) cm) m/s) TR PGmax: 24 mmHg ( - ) IVSd (2D): 1.2 cm (0.6 cm-1.1 AV maxP mmHg ( - ) cm) AV meanP mmHg ( - ) LVDd (2D): 4.3 cm (3.9 cm-5.3 LVOT Vmax: 1.57 m/s (0.7 m/s-1.1 cm) m/s) LVDs (2D): 2.7 cm (2.1 cm-4 JENIFFER (Vmax): 1.6 cm2 ( - ) cm) JENIFFER (VTI): 1.8 cm ( - ) LVPWd (2D): 1.1 cm ( - ) MV E Vmax: 0.87 m/s ( - ) LVOTd 1.9 cm 1.9 cm mm MV A Vmax: 1.16 m/s ( - ) LVEF (2D): 69 (>=54 %) MV E/A: 0.75 ( - ) RVDd(2D): 2.9 cm (1.9 cm-3.8 cmmm) Patient: RAVI COLLINS Study Date: 07/04/2018 Page 1 of 2 07:56 AM Continued Measurements: Chambers Valvular Assessment AV/MV Name Value Name Value LADs: 3.1 cm MV E' Septal: 0.06 m/s LADs Lon.4 cm MV E/E' Septal: 14.00 LA Area: 18.6 cm2 MV E/E' Lateral: 13.00 LA Volume: 44 ml LA Volume Index: 27.8 ml/m2 Findings: Left Ventricle: Normal size left ventricle. No LV hypertrophy. Global hypercontractility of the left ventricle. EF is 69 %. No regional wall motion abnormality. Diastolic dysfunction is present. . Right Ventricle: Normal size right ventricle. Normal RV function. Left Atrium: The left atrium is normal in size. Right Atrium: The right atrium is normal in size. Mitral Valve: The mitral valve is normal in appearance. Mild mitral valve regurgitation is present. Aortic Valve: Mean aortic valve gradient 18. Mild calcific aortic valve stenosis. There is known mild to moderate aortic valve calcification with no significant aortic valve insufficiency. The AV mean PG is 18 mmHg with a AV V max of 2.7 m/s. . Tricuspid Valve: The tricuspid valve appears normal. Trivial to mild tricuspid valve regurgitation. The pulmonary artery pressure is mildly increased. Pulmonic Valve: The pulmonic valve is normal in appearance and function. Aorta: The ascending aorta, the aortic arch and descending AO were imaged with no evidence of a disection.. Pericardium: No pericardial effusion. (No Signature Object) Patient: RAVI COLLINS Study Date: 07/04/2018 Page 2 of 2 07:56 AM [id number]
--- NOTE | 2018-07-04 11:56 | PDMN ---
Medical Necessity Medical necessity: Pt meets IP criteria as of 07/04/2018 per and FABIANA DOOLEY ( cardiology [facility]); est los > 2 mn for ongoing tx and management of type B aortic dissection with chest pain and HTN; requiring ICU level care, cardene gtt for BP control, arterial line for BP monitoring, and further workup.
[2018-07-04] MEDS: LOSARTAN POTASSIUM 50 MG TAB PO SCH (15:03)
--- NOTE | 2018-07-04 15:26 | GCON ---
MEDICINE CONSULTATION CHIEF COMPLAINT: Sudden onset severe abdominal pain. HISTORY OF PRESENT ILLNESS: The patient is a 72-year-old female with a history of hypertension, hyperlipidemia, and peripheral vascular disease, who presented to the emergency department with sudden onset epigastric abdominal pain. She was resting comfortably at home when she suddenly developed severe pain in her epigastrium which radiated to her back and into her substernal region. She described the pain as sharp and squeezing in sensation. There was no associated nausea or vomiting. She denies associated chest pain or diaphoresis. She has a history of an abdominal aortic aneurysm, which was repaired at [facility] in January of 2018. In the emergency department, chest, abdomen CT angiography was performed. Her aortoiliac graft appeared patent. However, there was a persistent penetrating ulcer involving the posterior left side of the proximal abdominal aorta at the level of the celiac artery origin. Cardiovascular surgery was consulted and did not feel this represented a true dissection in the ascending or transverse arch of the aorta. Heavy calcifications were noted as well as multiple atheromatous ulcers throughout the aorta. However, this was all deemed nonsurgical. She was admitted to the hospital for blood pressure control and medical management. PAST MEDICAL HISTORY: 1. Hypertension. 2. Hyperlipidemia. 3. Possible COPD. 4. Peripheral vascular disease. 5. History of abdominal aortic aneurysm repair. MEDICATIONS: Please see [facility] & Fourth completed outpatient medication list. ALLERGIES: Penicillin and latex. SOCIAL HISTORY: She has a history of tobacco abuse, [id number], although she quit 6 months ago. She has 1 drink per night. She lives independently. FAMILY HISTORY: Reviewed and noncontributory. REVIEW OF SYSTEMS: A 10-point review of systems was performed and was negative except as per HPI. OBJECTIVE: VITAL SIGNS: She is afebrile. Current blood pressure on a Cardene drip is 120/60, heart rate 73, respiratory rate 18. She is 97% on 1 L nasal cannula. GENERAL: The patient is awake, alert, and oriented, in no acute distress. HEENT: Head is atraumatic, normocephalic. Pupils equal, round, and reactive to light. Extraocular muscles are intact. Oropharynx is clear. Mucous membranes are moist. NECK: Supple. No JVD. HEART: Regular rate and rhythm without murmur. LUNGS: Clear to auscultation bilaterally. ABDOMEN: Soft, nondistended, nontender with normoactive bowel sounds. EXTREMITIES: Without cyanosis, clubbing, or edema. NEUROLOGIC: Grossly nonfocal. PSYCH: Affect is appropriate. LABORATORY DATA: CBC reveals a white blood cell count of 7.35, hemoglobin 11, which is stable from her previous hemoglobins of 9-10. Basic metabolic panel on admission: Her creatinine was 1.4. At the day of the consultation, her creatinine has improved to 1.1, CO2 20, BUN 24. Blood glucose is 130. IMAGING STUDIES: 1. CT angiography of the abdomen and chest is described above. 2. Echocardiogram shows an ejection fraction of 69% with no wall motion abnormality. Diastolic dysfunction is present. Mild mitral regurgitation is noted, as well as known [id number] aortic valve calcification with no aortic valve insufficiency, [id number] tricuspid regurgitation. Pulmonary artery pressure is mildly increased. Otherwise, this echo was unchanged from her previous in January 2018. ASSESSMENT AND PLAN: The patient is a 72-year-old female with a history of hypertension, hyperlipidemia, and peripheral vascular disease with a previous aortic aneurysm repair, presented to the emergency department with abdominal pain and was found to have a type B aortic dissection. 1. Type B aortic dissection. I discussed the case with Dr. Kevin Delvalle. No operative intervention is recommended. Medical management is advised with a goal systolic blood pressure less than 120. She is currently admitted to the intensive care unit on a Cardene drip. I will start by adding back her losartan 100 mg daily and anticipate she may require addition of a 2nd agent such as Coreg. Will aim to wean off her Cardene drip once her oral medications take effect, which will be up-titrated as indicated. 2. Hypertension. As above goal systolic blood pressure is less than 120 in the setting of type B aortic dissection. Blood pressure management as above. 3. Hyperlipidemia. Will continue her atorvastatin. 4. Peripheral vascular disease. Will resume her aspirin tomorrow as well as continue her statin as above. 5. Code status: Patient is full code. 6. Deep vein thrombosis prophylaxis per the surgical service. 7. Disposition: Patient is admitted to inpatient status. Medicine will continue to follow during hospitalization and assist with blood pressure management as requested. Please call for any questions or concerns. /[id number]/MODL MTDD
[2018-07-04] MEDS: ATORVASTATIN CALCIUM 40 MG TAB PO SCH (20:44)
[2018-07-05] MEDS: HYDROCODONE/APAP 5/325 TAB PO PRN ×4 (01:15→21:10)
--- NOTE | 2018-07-05 08:29 | HOSPPROG ---
Hospitalist Progress Note Assessment/Plan: Type B aortic dissection - non-operative per CV surgery, opting for medical management with SBP <120 -cont losartan, add norvasc -wean cardene as oral meds take effect Hypertension - meds as above, SBP goal <120 PVD - cont ASA, statin Full code Dispo - cont inpt / ICU, 30 min crit care, high risk Subjective: Pt feels ok, had some brief chest pain this am, resolved after pain meds. No events overnight. Currently pain free. Remains on cardene drip. Objective: Vital Signs Temp Pulse Resp BP Pulse Ox 36.6 C 74 18 132/68 H 95 07/04/18 20:00 07/05/18 06:00 07/05/18 06:00 07/05/18 06:00 07/05/18 06:00 Laboratory Results 07/04/18 05:43 07/04/18 05:43 07/04/18 07/05/18 07/06/18 05:59 05:59 05:59 Intake Total 2015 1712 Output Total 1350 1850 Balance 666 -137 PT 13.5 SEC (12.0-15.0) 07/03/18 19:00 INR 1.01 (0.83-1.16) 07/03/18 19:00 - Physical Exam Constitutional: no apparent distress Eyes: PERRL Ears, Nose, Mouth, Throat: moist mucous membranes Cardiovascular: regular rate and rhythym Respiratory: no respiratory distress, clear to auscultation Gastrointestinal: normoactive bowel sounds, soft, non-tender abdomen Skin: warm Musculoskeletal: full muscle strength Neurologic: AAOx3 Psychiatric: interacting appropriately ICD10 Worksheet Patient Problems: Problems Problem Status Onset Aortic dissection Acute Dyspnea Acute
[2018-07-05] MEDS ORDERED: amLODIPine BESYLATE 5 MG TAB PO SCH (09:00)
[2018-07-05] MEDS: niCARdipine/NACL 200 ML IV SCH ×4 (09:12→21:00)
[2018-07-05] MEDS ORDERED: CARVEDILOL 3.125 MG TAB PO SCH (09:15)
[2018-07-05] MEDS: LOSARTAN POTASSIUM 50 MG TAB PO SCH (09:26)
[2018-07-05] MEDS: ASPIRIN EC 325 MG TAB PO SCH (09:27)
--- NOTE | 2018-07-05 09:43 | PDINTPN ---
Soap Grinder Progress Note Assessment/Plan: 72 yo F with COPD, tobacco dependence admitted with type B aortic dissection and is being medically managed. # type B aortic dissection # h/o AAA repair # COPD, moderate to severe # tobacco dependence # Hypertension # HLD PLAN # appreciate management by hospital medicine and CTS # agree with ARB # agree with BB given dissection # wean of nicardipine as tolerated # prn duonebs # statin # asa 81 # cardiac diet # sedation prn qhs trazodone Subjective: Continues on nicardipine drip. No headaches no arm tingling numbness no chest pain or back pain. Started back on home losartan. Objective: Vital Signs Temp Pulse Resp BP Pulse Ox 36.8 C 72 12 122/53 H 97 07/05/18 08:00 07/05/18 09:27 07/05/18 08:00 07/05/18 09:27 07/05/18 08:00 Laboratory Results 07/04/18 05:43 07/04/18 05:43 07/04/18 07/05/18 07/06/18 05:59 05:59 05:59 Intake Total 2015 1712 Output Total 0 1850 Balance 666 -137 PT 13.5 SEC (12.0-15.0) 07/03/18 19:00 INR 1.01 (0.83-1.16) 07/03/18 19:00 Physical Exam - Physical Exam General Appearance: alert, no apparent distress EENT: PERRL/EOMI, normal ENT inspection, No scleral icterus (R), No scleral icterus (L) Neck: non-tender, full range of motion Respiratory: chest non-tender, lungs clear, normal breath sounds Cardiac/Chest: normal peripheral pulses, regular rate, rhythm, No edema Skin: normal color, warm/dry Extremities: normal range of motion, non-tender Neuro/Psych: no motor/sensory deficits, alert, normal mood/affect, oriented x 3 ICD10 Worksheet Patient Problems: Problems Problem Status Onset Aortic dissection Acute Dyspnea Acute
[2018-07-05] MEDS ORDERED: CARVEDILOL 6.25 MG TAB PO ONE ×2 (10:21→13:55)
[2018-07-05] MEDS: ENOXAPARIN 40 MG/0.4 ML SYR SC SCH (11:42)
[2018-07-05] MEDS: ATORVASTATIN CALCIUM 40 MG TAB PO SCH (21:09)
[2018-07-05] MEDS: CARVEDILOL 6.25 MG TAB PO SCH (21:11)
[2018-07-06] MEDS: niCARdipine/NACL 200 ML IV SCH ×2 (01:00→04:51)
[2018-07-06] MEDS: HYDROCODONE/APAP 5/325 TAB PO PRN ×3 (03:49→22:36)
[2018-07-06] MEDS: LOSARTAN POTASSIUM 50 MG TAB PO SCH (08:31)
[2018-07-06] MEDS: ASPIRIN EC 325 MG TAB PO SCH (08:32)
[2018-07-06] MEDS: CARVEDILOL 6.25 MG TAB PO SCH (08:32)
[2018-07-06] MEDS: ENOXAPARIN 40 MG/0.4 ML SYR SC SCH (08:32)
--- NOTE | 2018-07-06 08:33 | HOSPPROG ---
Hospitalist Progress Note Assessment/Plan: #Type B aortic dissection -evaluated by Dr. Delvalle, no surgical intervention -BP control <120. Losartan, Coreg #Hypertension: Coreg, Losartan #PVD: statin, ASA, BB #HLD: statin #Tobacco dependence: suleman gum #SHANON: improving #COPD: no e/o exacerbation #Diet: regular #DVT ppx: Lovenox #Disp: transfer to PCU for cont BP monitoring Subjective: mild left-sided chest pain last night Objective: Vital Signs Temp Pulse Resp BP Pulse Ox 36.8 C 69 14 121/54 H 93 07/05/18 08:00 07/06/18 06:00 07/06/18 06:00 07/06/18 06:00 07/06/18 06:00 Laboratory Results 07/04/18 05:43 07/04/18 05:43 07/05/18 07/06/18 07/07/18 05:59 05:59 05:59 Intake Total 1713 3024 400 Output Total 1850 600 450 Balance -137 2424 -50 PT 13.5 SEC (12.0-15.0) 07/03/18 19:00 INR 1.01 (0.83-1.16) 07/03/18 19:00 - Time Spent With Patient Time Spent with Patient: greater than 35 minutes Time Spent with Patient: Greater than 35 minutes spent on this patients care, greater than 50% of time spent counseling, educating, and coordinating care regarding the above mentioned plan. - Physical Exam Constitutional: no apparent distress Eyes: PERRL Ears, Nose, Mouth, Throat: moist mucous membranes Cardiovascular: regular rate and rhythym Respiratory: no respiratory distress Gastrointestinal: normoactive bowel sounds Genitourinary: no bladder fullness Skin: warm Musculoskeletal: full muscle strength Neurologic: AAOx3, CN II-XII Intact Psychiatric: interacting appropriately ICD10 Worksheet Patient Problems: Problems Problem Status Onset Aortic dissection Acute Dyspnea Acute
[2018-07-06] MEDS ORDERED: SENNOSIDES/DOCUSATE SODIUM TAB PO SCH (09:45)
[2018-07-06] MEDS ORDERED: POLYETHYLENE GLYCOL 3350 17 GM PKT PO PRN (09:49)
[2018-07-06] MEDS ORDERED: LACTULOSE 20 GM/30 ML UDCUP PO PRN (09:49)
[2018-07-06] MEDS ORDERED: MAGNESIUM HYDROXIDE 30 ML UDCUP PO PRN (09:49)
[2018-07-06] MEDS ORDERED: BISACODYL 10 MG SUPP PR PRN (09:49)
[2018-07-06] MEDS: SENNOSIDES/DOCUSATE SODIUM TAB PO SCH ×2 (11:18→20:25)
[2018-07-06] MEDS ORDERED: CARVEDILOL 6.25 MG TAB PO ONE (15:04)
[2018-07-06] MEDS: traMADol 50 MG TAB PO PRN (18:15)
[2018-07-06] MEDS: ATORVASTATIN CALCIUM 40 MG TAB PO SCH (20:25)
[2018-07-06] MEDS: CARVEDILOL 25 MG TAB PO SCH (20:25)
[2018-07-07] MEDS: SENNOSIDES/DOCUSATE SODIUM TAB PO SCH (08:25)
[2018-07-07] MEDS: ASPIRIN EC 325 MG TAB PO SCH (08:26)
[2018-07-07] MEDS ORDERED: CARVEDILOL 25 MG TAB PO SCH ×2 (08:27→12:31)
[2018-07-07] MEDS: LOSARTAN POTASSIUM 50 MG TAB PO SCH (08:27)
[2018-07-07] MEDS: traMADol 50 MG TAB PO PRN (08:27)
[2018-07-07] MEDS: ENOXAPARIN 40 MG/0.4 ML SYR SC SCH (08:30)
[2018-07-07] MEDS: CARVEDILOL 25 MG TAB PO SCH (09:06)
[2018-07-07 11:49] VITALS: BP 120/68
--- NOTE | 2018-07-07 16:55 | GDS ---
DISCHARGE DIAGNOSES: 1. Chest pain. 2. Hypertensive urgency. 3. Type B aortic dissection. 4. Peripheral vascular disease. CONSULTATIONS: CT Surgery. HPI: This is a 72-year-old female with history of hypertension, hyperlipidemia, and peripheral vascu lar disease, who presented to the ER with sudden onset epigastric abdominal pain. She was resting co mfortably at home when developed severe pain in her epigastrium, which radiated into her back, into h er substernal region. It was sharp and squeezing in nature. In the ER, chest CT and CTA were perfor med. Her aortic aortoiliac graft appeared patent. However, there was a persistent penetrating ulcer involving the posterior left side of the proximal abdominal aorta at the level of her celiac artery origin. Cardiovascular Surgery was consulted and did not feel this represented a true dissection. HOSPITAL COURSE BY PROBLEM: 1. Type B aortic dissection: Dr. Delvalle evaluated. This is nonoperative at this time. Medical makenzie camacho with good blood pressure control with systolic less than 120. She was initially on a Cardene drip. She was then transitioned to Coreg 25 mg twice daily (she did not tolerate 37.5, with heart r ates in the 40s). She is on losartan 100 mg as well. I added low-dose Norvasc 2.5. This can be up titrated per PCP. Advised patient to see her doctor on Monday for blood pressure checks. 2. Hypertension. As stated above. 3. Hyperlipidemia. Statin. 4. Peripheral vascular disease. Statin and aspirin. DISPOSITION: Patient is stable for discharge home with her . FOLLOWUP: 1. Dr. Medellin, her PCP, on Monday for blood pressure check with goal systolic blood pressure of l ess than . 2. Dr. Delvalle in [address] PHYSICAL EXAMINATION: VITAL SIGNS: Today, temperature 36.6, blood pressure 120/68, heart rates in t he 40s to 60s, respiration 14, 95% on room air. GENERAL: She is well appearing, no acute distress. HEENT: PERRLA. Moist mucous membranes. CV: Regular rate and rhythm. LUNGS: Clear. ABDOMEN: Soft, nontender, nondistended. Positive bow el sounds. : No Tim. MUSCULOSKELETAL: 5/5 upper and lower extremity strength. NEURO: 2 thro ugh 12 intact. PSYCH: Alert and oriented x3. TIME SPENT ON DISCHARGE: Greater than 30 minutes at bedside discussing medications and followup plan with patient and her . /[id number]/MODL
--- NOTE | 2018-07-17 08:58 | PQFORM ---
PHYSICIAN QUERY FORM Needs Your Response This query form is being sent to you to assure this patient record is coded properly. Please respond to the question below: [employer] DEPARTMENT CHAIR QUESTION: Dear Dr. Munoz, In reviewing this patients medical record, it is noted in the 07/06 Hospitalist Progress Note that the patient held the diagnosis of 'Acute Kidney Injury.' After study should the diagnosis of "Acute Kidney Injury" be included in the Discharge Summary? ___x__ Yes No Other Clinically Undetermined Thank You UMESH Lepe HIM/Coding Dept. [phone] INSTRUCTIONS FOR RESPONSE: Answer question by clicking on the "Edit Document" button. Move cursor to area below the stars. When complete, hit "Save." Click on the "Sign" button, then click "Sign" again. Type in your PIN and hit "Enter." MTDD
== END 2018-07-07 14:45 | disposition home or self-care (01) | DRG 300 ==
LOC: EDUNIT# → F2N 21:50 → F2W 07-06 14:38
PROVIDERS: ADMIT Thoracic Surgery (Cardiothoracic Vascular Surgery); ATTEND Thoracic Surgery (Cardiothoracic Vascular Surgery)
DX: I71.01 Dissection of thoracic aorta (principal); N17.9 Acute kidney failure, unspecified; I16.0 Hypertensive urgency; I71.4 Abdominal aortic aneurysm, without rupture; I73.9 Peripheral vascular disease, unspecified; E78.5 Hyperlipidemia, unspecified; J44.9 Chronic obstructive pulmonary disease, unspecified; E86.9 Volume depletion, unspecified; Z87.891 Personal history of nicotine dependence; Z88.0 Allergy status to penicillin
CPT/HCPCS: 82435-PO; 82565-PO; 82947-PO; 84132-PO; 84295-PO; 84484-PO; 84520-PO; 85014-PO; 96365; J1650; J1815; J2150; J2370; J3010; Q9967

== ENCOUNTER → 2018-07-25 | Outpatient (CLI) | payer OTHER ==
[~2018-07-25] MED LIST: IOPAMIDOL (ISOVUE 370) 100 ML BTL IV ONE
== END ==
LOC: FIMAGING 10:25
PROVIDERS: ATTEND Thoracic Surgery (Cardiothoracic Vascular Surgery)
DX: I71.01 Dissection of thoracic aorta (principal); I71.02 Dissection of abdominal aorta; I77.71 Dissection of carotid artery
CPT/HCPCS: 71275; Q9967